=== PATIENT | female | born 1940 | race Two or more races ===

== ENCOUNTER → 2017-10-03 | Outpatient (CLI) | payer MEDICARE, OTHER ==
[~2017-10-03] MED LIST: No meds per pt.
[2017-10-03 11:17] LABS: BASOPHILS # (AUTO) 0.03 x10^3/uL (0-0.1); BASOPHILS % (AUTO) 1 % (0-1); EOSINOPHILS % (AUTO) 0 % (1-7); LYMPHOCYTES # (AUTO) 1.43 x10^3/uL (1-3.4); LYMPHOCYTES % (AUTO) 30 % (22-44); MD NO; MEAN CORPUSCULAR HEMOGLOBIN 31.6 pg (27.0-34.8); MEAN PLATELET VOLUME 9.2 fL (7.4-10.4); MONOCYTES # (AUTO) 0.48 x10^3/uL (0.2-0.8); MONOCYTES % (AUTO) 10 % (2-9); NEUTROPHILS # (AUTO) 2.92 x10^3/uL (1.8-6.8); NEUTROPHILS % (AUTO) 60 % (42-75); PLATELET COUNT 244 x10^3/uL (130-400); RED BLOOD COUNT 4.68 x10^6/uL (3.82-5.3); RED CELL DISTRIBUTION WIDTH 13.7 % (9.6-15.2)
[2017-10-03 11:27] LABS: INTERNATIONAL NORMALIZED RATIO 1.04 (0.93-1.1); PROTHROMBIN TIME 10.7 Seconds (9.6-11.5)
[2017-10-03 11:30] LABS: ALBUMIN 3.7 g/dL (3.4-5.0); ANION GAP 5 mmol/L (5-15); CALCIUM 8.3 mg/dL (8.5-10.1); CHLORIDE 110 mmol/L (98-107); CREATININE 0.89 mg/dL (0.55-1.02)
[2017-10-03 11:38] LABS: ALANINE AMINOTRANSFERASE 40 U/L (12-78); ALKALINE PHOSPHATASE 75 U/L (45-117); BILIRUBIN,TOTAL 0.8 mg/dL (0.2-1.0); TOTAL PROTEIN 6.9 g/dL (6.4-8.2)
[2017-10-03 11:40] LABS: MICROSCOPIC AUTO
== END | disposition home or self-care (01) ==
LOC: STAR 10:11
PROVIDERS: ATTEND Urology
DX: Z01.818 Encounter for other preprocedural examination (principal); N20.0 Calculus of kidney
CPT/HCPCS: 36415; 71046; 80053; 81001; 85025; 85610; 85730; 87077; 87086; 87186; 93005

== ENCOUNTER 2017-10-10 05:32 | Day surgery (SDC) | payer MEDICARE, OTHER ==
[~2017-10-10] VITALS: Ht 167.6 cm; Wt 77.6 kg
[2017-10-10] MEDS ORDERED: LACTATED RINGERS 1,000 ML IV SCH (06:15)
[2017-10-10] MEDS ORDERED: SMZ/TMP DS PO (06:37)
[2017-10-10 06:38] VITALS: BP 129/77
[2017-10-10] MEDS ORDERED: FENTANYL PF 100 MCG/2ML ONE (07:54)
[2017-10-10] MEDS ORDERED: MIDAZOLAM 1 MG/ML, 2ML ONE ×2 (07:54)
[2017-10-10] MEDS ORDERED: PROPOFOL 10 MG/ML, 20ML ONE (07:56)
[2017-10-10] MEDS ORDERED: EPHEDRINE 50 MG/ML, 1ML ONE (08:10)
[2017-10-10] MEDS ORDERED: PHENYLEPHRINE 10 MG/ML ONE (08:10)
[2017-10-10] MEDS ORDERED: WATER-INJECTION,STERILE 10 ML IV ONE (08:10)
[2017-10-10] MEDS ORDERED: CEFAZOLIN 1,000 MG ONE (08:13)
[2017-10-10] MEDS ORDERED: METOCLOPRAMIDE 5 MG/ML, 2ML ONE (08:18)
[2017-10-10] MEDS ORDERED: ONDANSETRON 2MG/ML, 2ML ONE (08:19)
[2017-10-10] MEDS ORDERED: DEXAMETHASONE 4 MG/ML, 1ML ONE (08:19)
[2017-10-10] MEDS ORDERED: ONDANSETRON 2MG/ML, 2ML IVPush PRN (09:00)
[2017-10-10] MEDS ORDERED: FENTANYL PF 100 MCG/2ML IV PRN (09:00)
[2017-10-10] MEDS ORDERED: OXYcodone 5 MG/5 ML ORAL.SOL UDC PO PRN (09:00)
[2017-10-10] MEDS ORDERED: MEPERIDINE/PF 25MG/0.5ML IVPush PRN (09:00)
[2017-10-10] MEDS ORDERED: LABETALOL 5MG/ML, 20ML IV PRN (09:00)
[2017-10-10] MEDS ORDERED: HYDROmorphone 1 MG/ML, 1ML IV PRN (09:00)
[2017-10-10] MEDS ORDERED: MIDAZOLAM 1 MG/ML, 2ML IV PRN (09:00)
== END 2017-10-10 11:20 ==
LOC: OR 05:32 → OUT 11:20
PROVIDERS: ATTEND Urology
DX: N20.0 Calculus of kidney (principal)
CPT/HCPCS: 50590; J0690; J1100; J2250; J2370; J2405; J2704; J2765; J3010; J7120